=== PATIENT | male | born 1950 | race African-American/Black ===

== ENCOUNTER 2022-10-11 03:56 | Inpatient (IN) | payer MEDICARE, MEDICAID ==
[2022-10-11 05:12] LABS: #Monocytes 1.4 thou/uL (0.11-0.59); #Neutrophils 11.6 thou/uL (1.40-6.50); %Basophils 0.2 % (0.0-1.0); %Eosinophils 0.1 % (0.0-10.0); %Lymphocytes 7.5 % (21.0-51.0); %Monocytes 9.7 % (0.0-10.0); %Neutrophils 82.1 % (42.0-75.0); Hematocrit 36.2 % (42.0-52.0); Mean Corpuscular HGB CONC 30.4 g/dL (32.0-36.0); Mean Corpuscular Hemoglobin 24.3 pg (27.0-31.0); Mean Corpuscular Volume 80.1 fl (78.0-98.0); Mean Platelet Volume 11.9 fL (7.4-10.4); Platelet Count 204 10x3/uL (130-400); RBC Distribution Width 19.6 % (11.5-14.5); Red Blood Cell (RBC) Count 4.52 mill/uL (4.70-6.10); White Blood Cell (WBC) Count 14.2 10x3/uL (4.8-10.8)
[2022-10-11 05:21] LABS: Bacteria/HPF None Seen HPF (None Seen); Bilirubin Negative (Negative); Blood, Urine 3+ (Negative); CAUTI Indications for Culture Alt mental st,lethar; Clarity Turbid (Clear); Glucose, Urine (Dipstick) Normal (Negative); Ketone, Urine Negative (Negative); Leukocyte 500 Leu/uL (Negative); Nitrite Negative (Negative); Protein, Urine (Dipstick) 100 mg/dL (Neg-Trace); RBC/HPF 21-50 HPF (0-3); Specific Gravity, Urine 1.013 (1.002-1.036); Squamous Epithelial 0-3 HPF (0-3); Transitional Epithelial 0-3 HPF (None Seen); Urobilinogen Normal mg/dL (Less than 2); WBC/HPF Greater than 50 HPF (0-3); pH, Urine 5.5 (5.0-9.0)
[2022-10-11 05:25] LABS: Sperm/HPF 4+ HPF (None Seen)
[2022-10-11 05:26] LABS: Urine Culture Reflex Yes Yes
[2022-10-11 05:28] LABS: ALT (SGPT) 158 U/L (8-55); AST (SGOT) 639 U/L (5-34); Albumin 3.6 g/dL (3.4-4.8); Alkaline Phosphatase 91 U/L (40-110); Anion Gap 25 mmol/L (10-20); BUN (Urea Nitrogen) 87 mg/dL (8.4-25.7); Bilirubin, Total 1.2 mg/dL (0.2-1.2); Calc. Creatinine Clearance 0 mL/min (70-130); Carbon Dioxide 15 mmol/L (23-31); Chloride 102 mmol/L (98-107); Estimated GFR 10; Globulin 5.1 g/dL (2.4-3.5); Glucose 102 mg/dL (83-110); Potassium 4.4 mmol/L (3.5-5.1); Protein, Total 8.7 g/dL (5.8-8.1); Sodium 138 mmol/L (136-145)
[2022-10-11] MEDS ORDERED: Piperacillin/Tazobactam 4.5 GM in Sodium Chloride 0.9% 100 ML IVPB SCH (07:00)
[2022-10-11] MEDS ORDERED: Ondansetron ODT 4 MG TAB PO PRN (07:04)
[2022-10-11] MEDS ORDERED: Ondansetron PF 4 MG/2 ML Vial IVP PRN ×2 (07:04→08:38)
[2022-10-11] MEDS ORDERED: Piperacillin/Tazobactam 4.5 GM VIAL ONE (07:11)
[2022-10-11] MEDS ORDERED: Sodium Bicarbonate 150 MEQ in Dextrose 5% in Water 1,000 ML FS SCH (07:30)
[2022-10-11] MEDS: Sodium Bicarbonate 150 MEQ in Dextrose 5% in Water 1,000 ML IV SCH ×2 (08:49→20:21)
[2022-10-11] MEDS ORDERED: Folic Acid 1 MG TAB ONE (08:57)
[2022-10-11] MEDS ORDERED: Aspirin Chewable 81 MG TAB ONE (08:57)
[2022-10-11] MEDS ORDERED: Thiamine 100 MG TAB ONE (08:57)
[2022-10-11] MEDS: Folic Acid 1 MG TAB PO SCH (09:24)
[2022-10-11] MEDS: Aspirin 81 mg Enteric Coated Tablet PO SCH (09:24)
[2022-10-11] MEDS: levETIRAcetam 500 MG TAB PO SCH (09:25)
[2022-10-11] MEDS: QUEtiapine 25 MG TAB PO SCH ×2 (09:27→20:22)
[2022-10-11] MEDS: Tamsulosin HCl 0.4 MG CAP PO SCH (09:28)
[2022-10-11] MEDS: Thiamine 100 MG TAB PO SCH (09:28)
[2022-10-11 09:37] LABS: Lactic Acid 5.7 mmol/L (0.5-2.2)
[2022-10-11 09:39] LABS: Troponin I 5.077 ng/mL (< 0.028)
[2022-10-11 11:40] LABS: Troponin I 7.914 ng/mL (< 0.028)
[2022-10-11] MEDS ORDERED: Piperacillin/Tazobactam 3.375 GM VIAL ONE (11:54)
[2022-10-11] MEDS: Piperacillin/Tazobactam 3.375 GM in Sodium Chloride 0.9% 100 ML IVPB SCH (11:56)
[2022-10-11 12:32] LABS: CKMB 97.3 ng/mL (0-6.6)
[2022-10-11 17:18] LABS: ALT (SGPT) 168 U/L (8-55); AST (SGOT) 624 U/L (5-34); Albumin 2.8 g/dL (3.4-4.8); Alkaline Phosphatase 70 U/L (40-110); Anion Gap 22 mmol/L (10-20); BUN (Urea Nitrogen) 89 mg/dL (8.4-25.7); Bilirubin, Total 0.9 mg/dL (0.2-1.2); Calc. Creatinine Clearance 9 mL/min (70-130); Calcium 9.1 mg/dL (7.8-10.44); Carbon Dioxide 17 mmol/L (23-31); Chloride 104 mmol/L (98-107); Estimated GFR 10; Globulin 4.3 g/dL (2.4-3.5); Glucose 109 mg/dL (83-110); Potassium 4.8 mmol/L (3.5-5.1); Protein, Total 7.1 g/dL (5.8-8.1); Sodium 138 mmol/L (136-145)
[2022-10-11] MEDS: Bumetanide 1 MG TAB PO SCH ×2 (18:25→18:55)
[2022-10-11] MEDS: Budesonide 0.5 MG/2 ML NEB NEB SCH (19:27)
[2022-10-11] MEDS: Dextrose 5% in Water 1,000 ML IV SCH (22:10)
[2022-10-11 22:40] LABS: Lactic Acid 3.8 mmol/L (0.5-2.2)
[2022-10-11 23:18] LABS: CKMB 108.4 ng/mL (0-6.6)
[2022-10-12] MEDS: Piperacillin/Tazobactam 3.375 GM in Sodium Chloride 0.9% 100 ML IVPB SCH ×2 (00:15→11:05)
[2022-10-12 01:52] LABS: Critical Call Chem Troponin I RESULT DECREASING; Troponin I 8.151 ng/mL (< 0.028)
[2022-10-12 03:06] LABS: #Eosinphils 0.1 thou/uL (0.0-0.7); #Monocytes 0.9 thou/uL (0.11-0.59); #Neutrophils 8.6 thou/uL (1.40-6.50); %Basophils 0.3 % (0.0-1.0); %Eosinophils 0.8 % (0.0-10.0); %Lymphocytes 8.3 % (21.0-51.0); %Monocytes 8.9 % (0.0-10.0); %Neutrophils 81.3 % (42.0-75.0); Hematocrit 28.8 % (42.0-52.0); Hemoglobin 9.3 g/dL (14.0-18.0); Mean Corpuscular HGB CONC 32.3 g/dL (32.0-36.0); Mean Corpuscular Hemoglobin 24.3 pg (27.0-31.0); Mean Platelet Volume 10.2 fL (7.4-10.4); Platelet Count 133 10x3/uL (130-400); RBC Distribution Width 19.1 % (11.5-14.5); Red Blood Cell (RBC) Count 3.83 mill/uL (4.70-6.10); White Blood Cell (WBC) Count 10.6 10x3/uL (4.8-10.8)
[2022-10-12 03:29] LABS: Mean Corpuscular Volume 75.2 fl (78.0-98.0)
[2022-10-12 03:34] LABS: Phosphorus 7.1 mg/dL (2.3-4.7)
[2022-10-12 03:35] LABS: ALT (SGPT) 161 U/L (8-55); AST (SGOT) 545 U/L (5-34); Albumin 2.7 g/dL (3.4-4.8); Alkaline Phosphatase 66 U/L (40-110); Anion Gap 19 mmol/L (10-20); BUN (Urea Nitrogen) 92 mg/dL (8.4-25.7); Bilirubin, Total 0.8 mg/dL (0.2-1.2); Calc. Creatinine Clearance 10 mL/min (70-130); Calcium 8.7 mg/dL (7.8-10.44); Carbon Dioxide 20 mmol/L (23-31); Chloride 104 mmol/L (98-107); Estimated GFR 10; Globulin 3.8 g/dL (2.4-3.5); Glucose 101 mg/dL (83-110); Magnesium 1.8 mg/dL (1.6-2.6); Potassium 4.4 mmol/L (3.5-5.1); Protein, Total 6.5 g/dL (5.8-8.1); Sodium 139 mmol/L (136-145)
[2022-10-12] MEDS: Dextrose 5% in Water 1,000 ML IV SCH ×2 (06:24→16:34)
[2022-10-12] MEDS: Budesonide 0.5 MG/2 ML NEB NEB SCH ×2 (07:08→19:17)
[2022-10-12] MEDS ORDERED: Furosemide 40 MG/4 ML VIAL SLOW IVP SCH (08:15)
[2022-10-12] MEDS: Famotidine/PF 20 mg/2ml Vial SLOW IVP SCH ×2 (08:59→20:31)
[2022-10-12] MEDS: Aspirin 81 mg Enteric Coated Tablet PO SCH (08:59)
[2022-10-12] MEDS: Bumetanide 1 MG TAB PO SCH ×2 (09:00→15:30)
[2022-10-12] MEDS: Folic Acid 1 MG TAB PO SCH (09:00)
[2022-10-12] MEDS: levETIRAcetam 500 MG TAB PO SCH (09:00)
[2022-10-12] MEDS: Tamsulosin HCl 0.4 MG CAP PO SCH (09:01)
[2022-10-12] MEDS: QUEtiapine 25 MG TAB PO SCH (09:01)
[2022-10-12] MEDS: Thiamine 100 MG TAB PO SCH (09:02)
[2022-10-13 00:04] LABS: Actual Bicarbonate (HCO3a) 21.6 mEq/L (22-28); Base Excess (BEa) -2.4 mEq/L (-2.0 to +3.0); CO2 Tension 34.5 mmHg (35.0-45.0); Calcium, Ionized (arterial) 1.07 mmol/L (1.12-1.30); Carboxyhemoglobin (COHb) 0.8 gm% (0.0-3.0); Hematocrit-ABG 33 % (42.0-52.0); Hemoglobin (Hb) 11.1 g/dL (14.0-18.0); O2 Tension (PaO2), arterial 329.8 mmHg (> 70.0); pH, Arterial 7.415 (7.35-7.45)
[2022-10-13 00:06] LABS: Puncture Site RBA
[2022-10-13 00:07] LABS: ALV-art Gradient 340.075 mmHg (0-20)
[2022-10-13] MEDS: Piperacillin/Tazobactam 3.375 GM in Sodium Chloride 0.9% 100 ML IVPB SCH ×2 (00:15→12:54)
[2022-10-13] MEDS: Dextrose 5% in Water 1,000 ML IV SCH (00:16)
[2022-10-13] MEDS: Bumetanide 1 MG TAB PO SCH ×2 (00:17→15:51)
[2022-10-13] MEDS: Aspirin 81 mg Enteric Coated Tablet PO SCH ×2 (09:16→13:04)
[2022-10-13] MEDS: Tamsulosin HCl 0.4 MG CAP PO SCH ×2 (09:16→13:12)
[2022-10-13] MEDS: Thiamine 100 MG TAB PO SCH ×2 (09:16→13:12)
[2022-10-13] MEDS: levETIRAcetam 500 MG TAB PO SCH ×2 (09:16→13:12)
[2022-10-13] MEDS: Folic Acid 1 MG TAB PO SCH ×2 (09:17→13:11)
[2022-10-13] MEDS: Budesonide 0.5 MG/2 ML NEB NEB SCH ×2 (10:30→18:23)
[2022-10-13 14:17] LABS: ALT (SGPT) 174 U/L (8-55); AST (SGOT) 430 U/L (5-34); Albumin 3.1 g/dL (3.4-4.8); Alkaline Phosphatase 73 U/L (40-110); Anion Gap 19 mmol/L (10-20); BUN (Urea Nitrogen) 89 mg/dL (8.4-25.7); Bilirubin, Total 1.2 mg/dL (0.2-1.2); Calc. Creatinine Clearance 10 mL/min (70-130); Carbon Dioxide 24 mmol/L (23-31); Chloride 98 mmol/L (98-107); Estimated GFR 11; Globulin 4.5 g/dL (2.4-3.5); Glucose 109 mg/dL (83-110); Potassium 4.1 mmol/L (3.5-5.1); Protein, Total 7.6 g/dL (5.8-8.1); Sodium 137 mmol/L (136-145)
[2022-10-13] MEDS ORDERED: Carvedilol 3.125 MG TAB PO SCH (17:00)
[2022-10-14] MEDS: Piperacillin/Tazobactam 3.375 GM in Sodium Chloride 0.9% 100 ML IVPB SCH ×2 (00:40→12:21)
[2022-10-14 04:14] LABS: #Basophils 0.1 thou/uL (0.0-0.2); #Eosinphils 0.1 thou/uL (0.0-0.7); #Monocytes 1.3 thou/uL (0.11-0.59); #Neutrophils 8.5 thou/uL (1.40-6.50); %Basophils 0.4 % (0.0-1.0); %Eosinophils 0.9 % (0.0-10.0); %Lymphocytes 10.5 % (21.0-51.0); %Monocytes 11.4 % (0.0-10.0); %Neutrophils 76.3 % (42.0-75.0); Hematocrit 34.5 % (42.0-52.0); Hemoglobin 10.7 g/dL (14.0-18.0); Mean Corpuscular Hemoglobin 24.3 pg (27.0-31.0); Mean Corpuscular Volume 78.2 fl (78.0-98.0); Platelet Count 129 10x3/uL (130-400); RBC Distribution Width 20.4 % (11.5-14.5); Red Blood Cell (RBC) Count 4.41 mill/uL (4.70-6.10); White Blood Cell (WBC) Count 11.2 10x3/uL (4.8-10.8)
[2022-10-14 04:58] LABS: Anion Gap 19 mmol/L (10-20); BUN (Urea Nitrogen) 89 mg/dL (8.4-25.7); Calc. Creatinine Clearance 10 mL/min (70-130); Calcium 9.5 mg/dL (7.8-10.44); Carbon Dioxide 19 mmol/L (23-31); Chloride 103 mmol/L (98-107); Estimated GFR 11; Glucose 80 mg/dL (83-110); Potassium 4.6 mmol/L (3.5-5.1); Sodium 136 mmol/L (136-145)
[2022-10-14] MEDS: Budesonide 0.5 MG/2 ML NEB NEB SCH ×2 (07:51→18:46)
[2022-10-14] MEDS: Isosorbide Dinitrate 5 MG TAB PO SCH ×3 (09:26→20:23)
[2022-10-14] MEDS: Bumetanide 1 MG TAB PO SCH ×2 (09:26→16:46)
[2022-10-14] MEDS: Aspirin 81 mg Enteric Coated Tablet PO SCH (09:26)
[2022-10-14] MEDS: Folic Acid 1 MG TAB PO SCH (09:26)
[2022-10-14] MEDS: Tamsulosin HCl 0.4 MG CAP PO SCH (09:26)
[2022-10-14] MEDS: levETIRAcetam 500 MG TAB PO SCH (09:27)
[2022-10-14] MEDS: hydrALAZINE 25 MG TAB PER TUBE SCH ×3 (09:27→20:23)
[2022-10-14] MEDS: Carvedilol 6.25 MG TAB PO SCH ×2 (09:28→16:46)
[2022-10-14] MEDS: Thiamine 100 MG TAB PO SCH (09:28)
[2022-10-14] MEDS: Famotidine/PF 20 mg/2ml Vial SLOW IVP SCH (20:23)
[2022-10-15] MEDS: Piperacillin/Tazobactam 3.375 GM in Sodium Chloride 0.9% 100 ML IVPB SCH ×2 (00:06→11:05)
[2022-10-15] MEDS: Budesonide 0.5 MG/2 ML NEB NEB SCH ×2 (07:35→18:20)
[2022-10-15] MEDS: hydrALAZINE 25 MG TAB PER TUBE SCH ×3 (09:07→20:13)
[2022-10-15] MEDS: Carvedilol 6.25 MG TAB PO SCH ×2 (09:07→15:40)
[2022-10-15] MEDS: Aspirin 81 mg Enteric Coated Tablet PO SCH (09:08)
[2022-10-15] MEDS: Bumetanide 1 MG TAB PO SCH ×2 (09:08→15:40)
[2022-10-15] MEDS: Isosorbide Dinitrate 5 MG TAB PO SCH ×3 (09:08→20:13)
[2022-10-15] MEDS: Thiamine 100 MG TAB PO SCH (09:08)
[2022-10-15] MEDS: Folic Acid 1 MG TAB PO SCH (09:09)
[2022-10-15] MEDS: Tamsulosin HCl 0.4 MG CAP PO SCH (09:10)
[2022-10-15] MEDS: levETIRAcetam 500 MG TAB PO SCH (09:26)
[2022-10-15] MEDS: levETIRAcetam 500 mg/5 ml Oral Solution PO SCH (10:49)
[2022-10-15 13:38] LABS: #Eosinphils 0.2 thou/uL (0.0-0.7); #Monocytes 1.6 thou/uL (0.11-0.59); #Neutrophils 9.1 thou/uL (1.40-6.50); %Basophils 0.2 % (0.0-1.0); %Eosinophils 1.8 % (0.0-10.0); %Lymphocytes 7.5 % (21.0-51.0); %Monocytes 13.4 % (0.0-10.0); %Neutrophils 76.7 % (42.0-75.0); Hematocrit 32.8 % (42.0-52.0); Mean Corpuscular HGB CONC 30.5 g/dL (32.0-36.0); Mean Corpuscular Hemoglobin 24.4 pg (27.0-31.0); Mean Platelet Volume 11.3 fL (7.4-10.4); Platelet Count 97 10x3/uL (130-400); RBC Distribution Width 21.1 % (11.5-14.5); White Blood Cell (WBC) Count 11.9 10x3/uL (4.8-10.8)
[2022-10-15 13:53] LABS: Anion Gap 25 mmol/L (10-20); BUN (Urea Nitrogen) 96 mg/dL (8.4-25.7); Calc. Creatinine Clearance 10 mL/min (70-130); Calcium 9.1 mg/dL (7.8-10.44); Carbon Dioxide 18 mmol/L (23-31); Chloride 105 mmol/L (98-107); Estimated GFR 10; Glucose 94 mg/dL (83-110); Potassium 4.7 mmol/L (3.5-5.1); Sodium 143 mmol/L (136-145)
[2022-10-16] MEDS: Piperacillin/Tazobactam 3.375 GM in Sodium Chloride 0.9% 100 ML IVPB SCH ×2 (00:15→12:54)
[2022-10-16 06:22] LABS: #Eosinphils 0.2 thou/uL (0.0-0.7); #Neutrophils 7.1 thou/uL (1.40-6.50); %Basophils 0.2 % (0.0-1.0); %Eosinophils 1.6 % (0.0-10.0); %Lymphocytes 8.2 % (21.0-51.0); %Monocytes 11.3 % (0.0-10.0); %Neutrophils 78.3 % (42.0-75.0); Hematocrit 32.9 % (42.0-52.0); Hemoglobin 10.1 g/dL (14.0-18.0); Mean Corpuscular HGB CONC 30.7 g/dL (32.0-36.0); Mean Corpuscular Hemoglobin 24.3 pg (27.0-31.0); Mean Corpuscular Volume 79.3 fl (78.0-98.0); Mean Platelet Volume 10.7 fL (7.4-10.4); RBC Distribution Width 21.6 % (11.5-14.5); Red Blood Cell (RBC) Count 4.15 mill/uL (4.70-6.10); White Blood Cell (WBC) Count 9.1 10x3/uL (4.8-10.8)
[2022-10-16 06:36] LABS: Platelet Count 95 10x3/uL (130-400)
[2022-10-16 06:42] LABS: Anion Gap 22 mmol/L (10-20); BUN (Urea Nitrogen) 89 mg/dL (8.4-25.7); Calc. Creatinine Clearance 10 mL/min (70-130); Calcium 9.2 mg/dL (7.8-10.44); Carbon Dioxide 21 mmol/L (23-31); Chloride 103 mmol/L (98-107); Estimated GFR 12; Glucose 102 mg/dL (83-110); Potassium 4.5 mmol/L (3.5-5.1); Sodium 141 mmol/L (136-145)
[2022-10-16] MEDS: Budesonide 0.5 MG/2 ML NEB NEB SCH ×2 (08:10→19:05)
[2022-10-16] MEDS: hydrALAZINE 25 MG TAB PER TUBE SCH ×4 (10:45→22:00)
[2022-10-16] MEDS: Carvedilol 6.25 MG TAB PO SCH ×2 (10:46→18:40)
[2022-10-16] MEDS: Tamsulosin HCl 0.4 MG CAP PO SCH (10:46)
[2022-10-16] MEDS: Folic Acid 1 MG TAB PO SCH (10:46)
[2022-10-16] MEDS: Thiamine 100 MG TAB PO SCH (10:46)
[2022-10-16] MEDS: Aspirin 81 mg Enteric Coated Tablet PO SCH (10:46)
[2022-10-16] MEDS: Isosorbide Dinitrate 5 MG TAB PO SCH ×4 (10:47→22:00)
[2022-10-16] MEDS: Bumetanide 1 MG TAB PO SCH ×2 (10:47→18:40)
[2022-10-16] MEDS: levETIRAcetam 500 mg/5 ml Oral Solution PO SCH (10:47)
[2022-10-16] MEDS: Famotidine/PF 20 mg/2ml Vial SLOW IVP SCH (22:00)
[2022-10-17] MEDS: Piperacillin/Tazobactam 3.375 GM in Sodium Chloride 0.9% 100 ML IVPB SCH ×3 (00:18→23:38)
[2022-10-17 05:33] LABS: #Eosinphils 0.2 thou/uL (0.0-0.7); #Monocytes 1.1 thou/uL (0.11-0.59); #Neutrophils 6.6 thou/uL (1.40-6.50); %Basophils 0.3 % (0.0-1.0); %Eosinophils 1.9 % (0.0-10.0); %Lymphocytes 10.5 % (21.0-51.0); %Monocytes 12.2 % (0.0-10.0); %Neutrophils 74.8 % (42.0-75.0); Hematocrit 30.4 % (42.0-52.0); Hemoglobin 9.6 g/dL (14.0-18.0); Mean Corpuscular HGB CONC 31.6 g/dL (32.0-36.0); Mean Corpuscular Hemoglobin 24.6 pg (27.0-31.0); Mean Corpuscular Volume 77.7 fl (78.0-98.0); Platelet Count 101 10x3/uL (130-400); RBC Distribution Width 21.3 % (11.5-14.5); Red Blood Cell (RBC) Count 3.91 mill/uL (4.70-6.10); White Blood Cell (WBC) Count 8.8 10x3/uL (4.8-10.8)
[2022-10-17 05:51] LABS: Anion Gap 22 mmol/L (10-20); BUN (Urea Nitrogen) 91 mg/dL (8.4-25.7); Calc. Creatinine Clearance 10 mL/min (70-130); Calcium 8.9 mg/dL (7.8-10.44); Carbon Dioxide 21 mmol/L (23-31); Chloride 99 mmol/L (98-107); Estimated GFR 12; Glucose 145 mg/dL (83-110); Potassium 4.3 mmol/L (3.5-5.1); Sodium 138 mmol/L (136-145)
[2022-10-17] MEDS: Budesonide 0.5 MG/2 ML NEB NEB SCH ×2 (06:34→19:48)
[2022-10-17] MEDS: Bumetanide 1 MG TAB PO SCH ×2 (07:12→17:45)
[2022-10-17] MEDS: Carvedilol 6.25 MG TAB PO SCH ×2 (08:45→17:45)
[2022-10-17] MEDS: levETIRAcetam 500 mg/5 ml Oral Solution PO SCH (08:45)
[2022-10-17] MEDS: Folic Acid 1 MG TAB PO SCH (08:45)
[2022-10-17] MEDS: Aspirin 81 mg Enteric Coated Tablet PO SCH (08:45)
[2022-10-17] MEDS: hydrALAZINE 25 MG TAB PER TUBE SCH ×3 (08:45→20:07)
[2022-10-17] MEDS: Tamsulosin HCl 0.4 MG CAP PO SCH (08:45)
[2022-10-17] MEDS: Isosorbide Dinitrate 5 MG TAB PO SCH ×3 (08:45→20:07)
[2022-10-17] MEDS: Thiamine 100 MG TAB PO SCH (08:45)
[2022-10-17 13:34] VITALS: BMI 19.5
[2022-10-18 05:22] LABS: #Eosinphils 0.2 thou/uL (0.0-0.7); #Monocytes 1.3 thou/uL (0.11-0.59); #Neutrophils 6.6 thou/uL (1.40-6.50); %Basophils 0.3 % (0.0-1.0); %Eosinophils 1.7 % (0.0-10.0); %Lymphocytes 9.6 % (21.0-51.0); %Monocytes 14.8 % (0.0-10.0); %Neutrophils 73.3 % (42.0-75.0); Hematocrit 31.2 % (42.0-52.0); Hemoglobin 9.7 g/dL (14.0-18.0); Mean Corpuscular HGB CONC 31.1 g/dL (32.0-36.0); Mean Corpuscular Hemoglobin 24.3 pg (27.0-31.0); Mean Platelet Volume 11.1 fL (7.4-10.4); Platelet Count 102 10x3/uL (130-400); RBC Distribution Width 21.8 % (11.5-14.5)
[2022-10-18 05:41] LABS: Anion Gap 19 mmol/L (10-20); BUN (Urea Nitrogen) 96 mg/dL (8.4-25.7); Calc. Creatinine Clearance 12 mL/min (70-130); Calcium 9.1 mg/dL (7.8-10.44); Carbon Dioxide 23 mmol/L (23-31); Chloride 98 mmol/L (98-107); Estimated GFR 13; Glucose 105 mg/dL (83-110); Potassium 4.4 mmol/L (3.5-5.1); Sodium 136 mmol/L (136-145)
[2022-10-18] MEDS: Budesonide 0.5 MG/2 ML NEB NEB SCH ×2 (06:54→18:52)
[2022-10-18] MEDS: Folic Acid 1 MG TAB PO SCH (09:29)
[2022-10-18] MEDS: Carvedilol 6.25 MG TAB PO SCH ×2 (09:29→15:30)
[2022-10-18] MEDS: Aspirin 81 mg Enteric Coated Tablet PO SCH (09:30)
[2022-10-18] MEDS: Isosorbide Dinitrate 5 MG TAB PO SCH ×3 (09:30→21:17)
[2022-10-18] MEDS: levETIRAcetam 500 mg/5 ml Oral Solution PO SCH (09:30)
[2022-10-18] MEDS: Tamsulosin HCl 0.4 MG CAP PO SCH (09:30)
[2022-10-18] MEDS: hydrALAZINE 25 MG TAB PER TUBE SCH ×3 (09:30→21:17)
[2022-10-18] MEDS: Thiamine 100 MG TAB PO SCH (09:30)
[2022-10-18] MEDS: Bumetanide 1 MG TAB PO SCH ×2 (09:31→15:31)
[2022-10-18] MEDS: Piperacillin/Tazobactam 3.375 GM in Sodium Chloride 0.9% 100 ML IVPB SCH (12:22)
[2022-10-18] MEDS: Famotidine/PF 20 mg/2ml Vial SLOW IVP SCH (21:17)
[2022-10-19] MEDS: Piperacillin/Tazobactam 3.375 GM in Sodium Chloride 0.9% 100 ML IVPB SCH (00:19)
[2022-10-19 06:01] LABS: #Eosinphils 0.1 thou/uL (0.0-0.7); #Monocytes 1.4 thou/uL (0.11-0.59); #Neutrophils 6.8 thou/uL (1.40-6.50); %Basophils 0.4 % (0.0-1.0); %Eosinophils 1.4 % (0.0-10.0); %Lymphocytes 9.7 % (21.0-51.0); %Monocytes 15.4 % (0.0-10.0); %Neutrophils 72.8 % (42.0-75.0); Hematocrit 30.9 % (42.0-52.0); Hemoglobin 9.9 g/dL (14.0-18.0); Mean Corpuscular Hemoglobin 24.5 pg (27.0-31.0); Mean Corpuscular Volume 76.5 fl (78.0-98.0); RBC Distribution Width 22.5 % (11.5-14.5); Red Blood Cell (RBC) Count 4.04 mill/uL (4.70-6.10); White Blood Cell (WBC) Count 9.4 10x3/uL (4.8-10.8)
[2022-10-19 06:12] LABS: Platelet Count 118 10x3/uL (130-400)
[2022-10-19 06:26] LABS: Anion Gap 21 mmol/L (10-20); BUN (Urea Nitrogen) 87 mg/dL (8.4-25.7); Calc. Creatinine Clearance 12 mL/min (70-130); Calcium 9.5 mg/dL (7.8-10.44); Carbon Dioxide 20 mmol/L (23-31); Chloride 101 mmol/L (98-107); Estimated GFR 14; Glucose 89 mg/dL (83-110); Potassium 4.3 mmol/L (3.5-5.1); Sodium 138 mmol/L (136-145)
[2022-10-19] MEDS: Budesonide 0.5 MG/2 ML NEB NEB SCH ×2 (07:07→18:42)
[2022-10-19] MEDS: levETIRAcetam 500 mg/5 ml Oral Solution PO SCH (09:44)
[2022-10-19] MEDS: Folic Acid 1 MG TAB PO SCH (09:44)
[2022-10-19] MEDS: Isosorbide Dinitrate 5 MG TAB PO SCH ×3 (09:44→21:39)
[2022-10-19] MEDS: Carvedilol 6.25 MG TAB PO SCH ×2 (09:44→17:03)
[2022-10-19] MEDS: Bumetanide 1 MG TAB PO SCH ×2 (09:44→17:03)
[2022-10-19] MEDS: Tamsulosin HCl 0.4 MG CAP PO SCH (09:45)
[2022-10-19] MEDS: Thiamine 100 MG TAB PO SCH (09:45)
[2022-10-19] MEDS: Aspirin 81 mg Enteric Coated Tablet PO SCH (09:45)
[2022-10-19] MEDS: hydrALAZINE 25 MG TAB PER TUBE SCH ×3 (09:45→21:39)
[2022-10-20] MEDS ORDERED: Lorazepam 0.5 MG TAB PO SCH (02:30)
[2022-10-20 05:47] LABS: #Eosinphils 0.1 thou/uL (0.0-0.7); #Monocytes 1.5 thou/uL (0.11-0.59); #Neutrophils 6.8 thou/uL (1.40-6.50); %Basophils 0.2 % (0.0-1.0); %Eosinophils 1.1 % (0.0-10.0); %Lymphocytes 9.6 % (21.0-51.0); %Neutrophils 72.7 % (42.0-75.0); Hematocrit 31.6 % (42.0-52.0); Hemoglobin 10.1 g/dL (14.0-18.0); Mean Corpuscular Hemoglobin 24.6 pg (27.0-31.0); Mean Corpuscular Volume 76.9 fl (78.0-98.0); Platelet Count 141 10x3/uL (130-400); RBC Distribution Width 22.6 % (11.5-14.5); Red Blood Cell (RBC) Count 4.11 mill/uL (4.70-6.10); White Blood Cell (WBC) Count 9.4 10x3/uL (4.8-10.8)
[2022-10-20 06:09] LABS: Anion Gap 18 mmol/L (10-20); BUN (Urea Nitrogen) 95 mg/dL (8.4-25.7); Calc. Creatinine Clearance 14 mL/min (70-130); Calcium 9.3 mg/dL (7.8-10.44); Carbon Dioxide 22 mmol/L (23-31); Chloride 99 mmol/L (98-107); Estimated GFR 15; Glucose 86 mg/dL (83-110); Potassium 4.3 mmol/L (3.5-5.1); Sodium 135 mmol/L (136-145)
[2022-10-20] MEDS: Budesonide 0.5 MG/2 ML NEB NEB SCH ×2 (07:49→19:38)
[2022-10-20] MEDS: Bumetanide 1 MG TAB PO SCH ×3 (10:05→15:33)
[2022-10-20] MEDS: Folic Acid 1 MG TAB PO SCH (10:05)
[2022-10-20] MEDS: hydrALAZINE 25 MG TAB PER TUBE SCH (10:06)
[2022-10-20] MEDS: Aspirin 81 mg Enteric Coated Tablet PO SCH (10:06)
[2022-10-20] MEDS: Tamsulosin HCl 0.4 MG CAP PO SCH (10:06)
[2022-10-20] MEDS: Thiamine 100 MG TAB PO SCH (10:06)
[2022-10-20] MEDS: Isosorbide Dinitrate 5 MG TAB PO SCH (10:07)
[2022-10-20] MEDS: levETIRAcetam 500 mg/5 ml Oral Solution PO SCH (10:07)
[2022-10-20] MEDS: Carvedilol 6.25 MG TAB PO SCH ×2 (10:07→17:19)
[2022-10-20] MEDS ORDERED: cloNIDine 0.1 MG TAB PO PRN (11:33)
[2022-10-20] MEDS: hydrALAZINE 25 MG TAB PO SCH ×3 (15:24→20:21)
[2022-10-20] MEDS: Famotidine/PF 20 mg/2ml Vial SLOW IVP SCH (20:22)
[2022-10-21] MEDS: Bumetanide 1 MG TAB PO SCH ×2 (06:26→18:23)
[2022-10-21] MEDS: Budesonide 0.5 MG/2 ML NEB NEB SCH ×2 (07:10→19:03)
[2022-10-21] MEDS: hydrALAZINE 25 MG TAB PO SCH ×3 (08:52→20:25)
[2022-10-21] MEDS: Tamsulosin HCl 0.4 MG CAP PO SCH (08:52)
[2022-10-21] MEDS: Carvedilol 6.25 MG TAB PO SCH ×2 (08:53→18:23)
[2022-10-21] MEDS: levETIRAcetam 500 mg/5 ml Oral Solution PO SCH (08:53)
[2022-10-21] MEDS: Folic Acid 1 MG TAB PO SCH (08:53)
[2022-10-21] MEDS: Aspirin 81 mg Enteric Coated Tablet PO SCH (08:53)
[2022-10-21] MEDS: Thiamine 100 MG TAB PO SCH (09:09)
[2022-10-21 11:57] LABS: Anion Gap 16 mmol/L (10-20); BUN (Urea Nitrogen) 92 mg/dL (8.4-25.7); Calc. Creatinine Clearance 14 mL/min (70-130); Carbon Dioxide 26 mmol/L (23-31); Chloride 100 mmol/L (98-107); Estimated GFR 17; Glucose 144 mg/dL (83-110); Potassium 4.5 mmol/L (3.5-5.1); Sodium 137 mmol/L (136-145)
[2022-10-21 21:30] VITALS: TEMP 98.2
[2022-10-22] MEDS: Budesonide 0.5 MG/2 ML NEB NEB SCH (06:11)
[2022-10-22] MEDS: Carvedilol 6.25 MG TAB PO SCH (08:21)
[2022-10-22] MEDS: Folic Acid 1 MG TAB PO SCH (08:21)
[2022-10-22] MEDS: hydrALAZINE 25 MG TAB PO SCH (08:21)
[2022-10-22] MEDS: Tamsulosin HCl 0.4 MG CAP PO SCH (08:21)
[2022-10-22] MEDS: Bumetanide 1 MG TAB PO SCH (08:21)
[2022-10-22] MEDS: Thiamine 100 MG TAB PO SCH (08:21)
[2022-10-22] MEDS: Aspirin 81 mg Enteric Coated Tablet PO SCH (08:21)
[2022-10-22] MEDS: levETIRAcetam 500 mg/5 ml Oral Solution PO SCH (08:22)
[2022-10-22 08:27] VITALS: BP 142/90
== END 2022-10-22 12:12 | disposition home or self-care (01) | DRG 871 ==
LOC: ERS 03:56 → ERHOLD 06:38 → IMCU/EMU 17:28 → SURG B 10-15 20:35
PROVIDERS: ADMIT Internal Medicine; ATTEND Internal Medicine Critical Care Medicine
PROC: 3E03329 Introduction of Other Anti-infective into Peripheral Vein, Percutaneous Approach (ICD-10-PCS; 2022-10-11)
PROC: 4A133R1 Monitoring of Arterial Saturation, Peripheral, Percutaneous Approach (ICD-10-PCS; principal; 2022-10-13)
DX: A41.9 Sepsis, unspecified organism (principal); G93.41 Metabolic encephalopathy; R65.21 Severe sepsis with septic shock; I62.03 Nontraumatic chronic subdural hemorrhage; I21.A1 Myocardial infarction type 2; N39.0 Urinary tract infection, site not specified; E87.20 Acidosis, unspecified; N17.9 Acute kidney failure, unspecified; I13.0 Hypertensive heart and chronic kidney disease with heart failure and stage 1 through stage 4 chronic kidney disease, or unspecified chronic kidney disease; I50.22 Chronic systolic (congestive) heart failure; N18.4 Chronic kidney disease, stage 4 (severe); J45.909 Unspecified asthma, uncomplicated; K76.82 Hepatic encephalopathy; R74.01 Elevation of levels of liver transaminase levels; N40.0 Benign prostatic hyperplasia without lower urinary tract symptoms; D63.1 Anemia in chronic kidney disease; K70.30 Alcoholic cirrhosis of liver without ascites; R53.1 Weakness; F10.20 Alcohol dependence, uncomplicated; B19.20 Unspecified viral hepatitis C without hepatic coma; Z66 Do not resuscitate; Z79.899 Other long term (current) drug therapy; Z98.890 Other specified postprocedural states; R13.10 Dysphagia, unspecified
CPT/HCPCS: 36415; 36416; 36600; 70450; 71045; 74018; 76770; 80048; 80053; 81001; 82140; 82553; 82805; 83605; 83690; 83735; 83880; 84100; 84145; 84484; 85025; 87086; 93005; 93010; 93306; 94640; 96365; 96366; J1940; J2543; J3490; J7070; J7626; S0028